=== PATIENT | female | born 1970 | race Caucasian/White ===

== ENCOUNTER 2016-12-09 22:20 | Emergency (ER) | payer OTHER ==
[2016-12-10 00:44] VITALS: BP 124/63; PULSE 82; TEMP 97.7; BMI 37.6
--- NOTE | 2016-12-10 01:08 | PDOC ---
History of Present Illness - History of Present Illness Initial Comments: 12/10/16 01:39 Patient is a 46 year old female with significant medical hx of hypothyroidism and bipolar disorder who is presenting to the ED with left lower extremity swelling and calf pain for one day. The patient complains of calf pain with swelling that worsens when she tries getting up. She notes that this has happened to her once before in the past month and her symptoms resolved on their own. Patient endorses pedal edema that she states has been ongoing every morning for a while. The patient also complains of right trapezius pain, described as a shooting pain, which radiates to the right scapula, that started today. Denies recent travel, increased salt intake, shortness of breath, or chest pain. PCP: Quoc Reyna MD Social Hx: Half a pack a day for 30 years. Allergies: Penicillin Surgical Hx: Gastric sleeve <Shantel Tay - Last Filed: 12/10/16 01:55> <Cynthia Brown - Last Filed: 12/10/16 02:44> - General Chief Complaint: Edema Stated Complaint: L LEG SWELLING Time Seen by Provider: 12/10/16 01:06 Past History <Shantel Tay - Last Filed: 12/10/16 01:55> - Past Medical History Psychiatric Problems: Yes (BIPOLAR) Thyroid Disease: Yes - Immunization History Td Vaccination: No TDAP Vaccination: No Immunization Up to Date: No - Psycho/Social/Smoking Cessation Hx Anxiety: No Suicidal Ideation: No Smoking Status: No Smoking History: Current every day smoker Years of Tobacco Use: 20 Number of Cigarettes Smoked Daily: 10 Cigars Per Day: 0 Information on smoking cessation initiated: No Hx Alcohol Use: No Drug/Substance Use Hx: No <Cynthia Brown - Last Filed: 12/10/16 02:44> - Past Medical History Allergies/Adverse Reactions: Allergies Allergy/AdvReac Type Severity Reaction Status Date / Time Penicillins Allergy Unknown Verified 12/10/16 00:42 Home Medications: Ambulatory Orders Alprazolam [Xanax] 2 mg PO BID 03/06/16 Cholecalciferol (Vitamin D3) [Vitamin D -] 50,000 unit PO DAILY 03/06/16 Clindamycin [Cleocin -] 300 mg PO TID #21 capsule 03/06/16 Ferrous Sulfate [Feosol] 325 mg PO DAILY 03/06/16 Fluticasone Prop 0.05% Nasal [Flonase -] 1 - 2 spray NS DAILY 03/06/16 Furosemide [Lasix -] 40 mg PO DAILY 03/06/16 Gabapentin [Neurontin -] 100 mg PO Q8H 03/06/16 Iodine [Kelp] 150 mcg PO DAILY 03/06/16 L.acidoph,Paracasei, B.lactis [Probiotic] 1 each PO DAILY 03/06/16 Levothyroxine [Synthroid -] 100 mcg PO DAILY 03/06/16 Montelukast Na [Singulair -] 10 mg PO HS 03/06/16 Omeprazole 20 mg PO BID 03/06/16 Oxycodone HCl/Acetaminophen [Percocet 10-325 mg Tablet] 1.5 each PO PRN Phendimetrazine Tartrate 105 mg PO DAILY 03/06/16 Potassium Chloride [K-Tab ER] 10 meq PO DAILY 03/06/16 Prochlorperazine Maleate 5 mg PO PRN 03/06/16 Selenomethionine [Selenium] 200 mcg PO DAILY 03/06/16 Sulfamethoxazole/Trimethoprim [Bactrim Ds -] 1 tab PO BID #14 tablet 03/06/16 Venlafaxine HCl ER [Effexor Xr -] 75 mg PO BID 03/06/16 Zolpidem Tartrate [Ambien] 10 mg PO DAILY 03/06/16 Review of Systems - Review of Systems Comments:: 12/10/16 01:40 CONSTITUTIONAL: Absent: fever, chills, diaphoresis, generalized weakness, malaise, loss of appetite HEENT: Absent: rhinorrhea, nasal congestion, throat pain, throat swelling, difficulty swallowing, mouth swelling, ear pain, eye pain, visual changes CARDIOVASCULAR: Absent: chest pain, syncope, palpitations, irregular heart rate, lightheadedness , peripheral edema RESPIRATORY: Absent: cough, shortness of breath, dyspnea with exertion, orthopnea, wheezing, stridor, hemoptysis GASTROINTESTINAL: Absent: abdominal pain, abdominal distension, nausea, vomiting, diarrhea, constipation, melena, hematochezia GENITOURINARY: Absent: dysuria, frequency, urgency, hesitancy, hematuria, flank pain, genital pain MUSCULOSKELETAL: Present: left calf pain and swelling, bilateral pedal edema, right trapezius pain with radiation to the right scapula Absent: myalgia, arthralgia SKIN: Absent: rash, itching, pallor HEMATOLOGIC/IMMUNOLOGIC: Absent: easy bleeding, easy bruising, lymphadenopathy, frequent infections ENDOCRINE: Absent: unexplained weight gain, unexplained weight loss, heat intolerance, cold intolerance NEUROLOGIC: Absent: headache, focal weakness or paresthesia, dizziness, unsteady gait, seizure, mental status changes, bladder or bowel incontinence. PSYCHIATRIC: Absent: anxiety, depression, suicidal or homicidal ideation, hallucinations <Shantel Tay - Last Filed: 12/10/16 01:55> *Physical Exam - Vital Signs Last Vital Signs Temp Pulse Resp BP Pulse Ox 97.7 F 82 16 124/63 100 12/10/16 00:42 12/10/16 00:42 12/10/16 00:42 12/10/16 00:42 12/10/16 00:42 - Physical Exam Comments: 12/10/16 01:41 GENERAL: Well developed, well nourished. Awake and alert. No acute distress. HEENT: Normocephalic, atraumatic. PERRLA, EOMI. No conjunctival pallor. Sclera are non- icteric. Moist mucous membranes. Oropharynx is clear. NECK: Supple. Full ROM. No JVD. Carotid pulses 2+ and symmetric, without bruits. No thyromegaly. No lymphadenopathy. CARDIOVASCULAR: Regular rate and rhythm. No murmurs, rubs, or gallops. Distal pulses are 2+ and symmetric. PULMONARY: No evidence of respiratory distress. Lungs clear to auscultation bilaterally. No wheezing, rales or rhonchi. ABDOMINAL: Soft. Obese abdomen. Non-tender. Non-distended. No rebound or guarding. No organomegaly. Normoactive bowel sounds. MUSCULOSKELETAL: Normal range of motion at all joints. No bony deformities or tenderness. No CVA tenderness. EXTREMITIES: Left calf swelling without any erythema, induration, tenderness. Mild bilateral pedal edema. No Regina's sign. No cyanosis. No clubbing. SKIN: Warm and dry. Normal capillary refill. No rashes. No jaundice. NEUROLOGICAL: Alert, awake, appropriate. Cranial nerves 2-12 intact. Normal speech. Gait is normal without ataxia. PSYCHIATRIC: Cooperative. Good eye contact. Appropriate mood and affect. <Shantel Tay - Last Filed: 12/10/16 01:55> - Vital Signs Last Vital Signs Temp Pulse Resp BP Pulse Ox 97.7 F 82 16 124/63 100 12/10/16 00:42 12/10/16 00:42 12/10/16 00:42 12/10/16 00:42 12/10/16 00:42 <Cynthia Brown - Last Filed: 12/10/16 02:44> Heart Score/ECG Review - Electrocardiogram EKG: Normal - Age Age: </= 45 - Risk Factors Risk Factors Heart Score: Yes Hx Obesity Based on the list above the patient has:: 1-2 risk factors - ECG Intrepretation Rhythm: Regular Rhythm - [place]: Normal - P and ND Prominent R with upright T in V1 (true posterior AR): No Delta Wave(s) Present: No WPW: No - QRS Poor R Wave Progression: No Q Wave Present: No - ST and T Early Repolarization: No Non Specific ST-T Wave changes: No Flattened T Waves: No Comment:: 12/10/16 02:04 <Cynthia Brown - Last Filed: 12/10/16 02:44> ED Treatment Course - RADIOLOGY Radiograph Interpretation: 12/10/16 01:49 [employer] Machine Operator: sal) Report Date: 12/10/2016 01:23:00 Report Status: Preliminary Begin of Report Content Referring Physician: Cynthia Brown Patient Name: Tari Smiley THIS IS A PRELIMINARY REPORT FROM IMAGING RISK COMPLIANCE ANALYST EXAM: Venous duplex unilateral, left lower extremity IMAGES: 20 INDICATION: Rule out DVT DATE OF SERVICE: 2016-12-10 01:23:07.0 COMPARISON: none FINDINGS: There is no DVT in the left lower extremity. IMPRESSION: No DVT. THIS DOCUMENT HAS BEEN ELECTRONICALLY SIGNED Leif Gonzalez MD 12/10/2016 01:45 EST M.Gustavo Please call Imaging Sales Operations Assistant [phone] ([phone]) with questions. End of Report Content <Shantel Tay - Last Filed: 12/10/16 01:55> *DC/Admit/Observation/Transfer - Attestations Scribe Attestion: 12/10/16 01:43 Documentation prepared by Shantel Tay, acting as medical device sales representative for Cynthia Brown MD. <Shantel Tay - Last Filed: 12/10/16 01:55> <Cynthia Brown - Last Filed: 12/10/16 02:44> - Referrals Referrals: Quoc Reyna MD [Primary Care Provider] -
--- NOTE | 2016-12-10 03:05 | PDOC ---
*Physical Exam - Vital Signs Last Vital Signs Temp Pulse Resp BP Pulse Ox 97.7 F 82 16 124/63 98 12/10/16 00:42 12/10/16 00:42 12/10/16 00:42 12/10/16 00:42 12/10/16 01:30 *DC/Admit/Observation/Transfer Diagnosis at time of Disposition: Swelling of left lower extremity - Discharge Dispostion Disposition: HOME Condition at time of disposition: Stable Admit: No - Referrals Referrals: Quoc Reyna MD [Primary Care Provider] - - Patient Instructions Printed Discharge Instructions: DI for Leg Pain, DI for Peripheral Edema, Unilateral Additional Instructions: Please follow up with your primary care for any other issues - Post Discharge Activity
--- NOTE | 2016-12-10 12:31 | EKG ---
Test Reason : Blood Pressure : / mmHG Vent. Rate : 082 BPM Atrial Rate : 082 BPM P-R Int : 156 ms QRS Dur : 090 ms QT Int : 384 ms P-R-T Axes : 050 032 029 degrees QTc Int : 448 ms POOR DATA QUALITY, INTERPRETATION MAY BE ADVERSELY AFFECTED NORMAL SINUS RHYTHM NORMAL ECG WHEN COMPARED WITH ECG OF 10-JAN-2010 10:10, NO SIGNIFICANT CHANGE WAS FOUND Confirmed by YFN SHETH, RYAN ([id number]) on 12/10/2016 12:31:07 PM Referred By: Confirmed By:RYAN COULTER MD
== END 2016-12-10 03:08 | disposition home or self-care (01) ==
LOC: JER 22:20
DX: M79.605 Pain in left leg (principal); E03.9 Hypothyroidism, unspecified; F31.9 Bipolar disorder, unspecified; F17.210 Nicotine dependence, cigarettes, uncomplicated
CPT/HCPCS: 93005; 93010; 93971-TC; 99282-25